=== PATIENT | male | born 1995 | race Caucasian/White ===

== ENCOUNTER 2016-11-24 01:14 | Emergency (ER) | payer OTHER ==
[~2016-11-24] VITALS: Ht 182.9 cm; Wt 79.2 kg
[2016-11-24 01:16] VITALS: TEMP 36.7; Ht 182.9 cm; Wt 79.2 kg
[2016-11-24] MEDS ORDERED: PROPARACAINE HCL 0.5% OP SOLN 15 ML BTL ONE (01:32)
[2016-11-24] MEDS ORDERED: CIPROFLOXACIN HCL 0.3% OP SOLN 2.5 ML BTL OP ONE (02:30)
[2016-11-24] MEDS ORDERED: OXYCODONE IR HOME PACK PO ONE (02:30)
[2016-11-24 02:53] VITALS: BP 129/65; PULSE 58; O2SAT 98
--- NOTE | 2016-11-24 06:38 | EMERGENCY ROOM VISIT NOTE ---
ED Visit Note First contact with patient: 01:37 CHIEF COMPLAINT: Foreign body of the eye HISTORY OF PRESENT ILLNESS: This 21 year old male patient presents to the emergency department complaining of pain and foreign body sensation in the right eye. The patient states that he was working on a vehicle today, and got a piece of metal in his eye. There has been a constant moderate pain and irritation, redness and tearing in the eye. The vision has been decreased in the right eye. The patient does not wear contacts. The patient rates the pain as 7/10. The patient has not had previous injuries to this eye. Tetanus shot is reportedly up to date. REVIEW OF SYSTEMS: A 6 system review of systems was completed with positives and pertinent negatives listed in the HPI. ALLERGIES:NKDA MEDICATIONS: No chronic medications PMH: Otherwise healthy SOCIAL HISTORY: Lives locally PHYSICAL EXAM: Vital Signs: Reviewed Nurse's notes, vital signs stable. Visual acuity 20/50 in the right and 20/30 in the left. GENERAL: This is a white male , in no acute distress, but who is uncomfortable from the eye problem. Well- developed well-nourished. EYES: The pupils are equal round and reactive to light and accommodation. EOMs are full and without tenderness. There is watery discharge from the right eye which is injected. There is a metallic- appearing foreign body at 2:00 visible on the cornea. There is no foreign body visible under the eyelid after lid eversion. The cornea was clear and no hyphema was seen. Fluorescein uptake was observed with ultraviolet light significant for a corneal abrasion only around the previous location of the foreign body. EMERGENCY DEPARTMENT COURSE: I examined the patient. Alcaine 2 drops were placed in the patient's right eye. A slit lamp exam was performed as above. Verbal consent was obtained to perform the procedure. The metallic foreign body was removed using a tuberculin needle and cotton swab. Ciloxan two drops was placed in the patient's right eye. The patient was discharged home in good condition to follow up as below. Current/Historical Medications No Active Prescriptions or Reported Meds Allergies Coded Allergies: No Known Allergies (Unverified , 11/24/16) Vital Signs Date Time Temp Pulse Resp B/P Pulse Ox O2 Delivery O2 Flow Rate FiO2 11/24/16 02:53 58 16 129/65 98 11/24/16 01:16 36.7 67 20 133/83 100 Room Air Medications Administered Medications (Trade) Dose Ordered Sig/Sanjeev Route Start Time Stop Time Status Last Admin Dose Admin Ciprofloxacin HCl (Ciprofloxacin 0.3% Op Soln) 2 drops NOW ONCE OP 11/24/16 02:30 11/24/16 02:31 DC 11/24/16 02:48 2 DROPS Oxycodone HCl (Roxicodone Immediate Rel 5MG Home Pack) 1 homepack UD ONCE PO 11/24/16 02:30 11/24/16 02:31 DC 11/24/16 02:48 1 HOMEPACK Departure Information Impression Primary Impression: Foreign body in eye Dispostion Home / Self-Care Condition GOOD Prescriptions No Active Prescriptions or Reported Meds Referrals Broderick Anthony M.D. Forms HOME CARE DOCUMENTATION FORM, IMPORTANT VISIT INFORMATION Patient Instructions My [facility] Additional Instructions You were seen and evaluated today on an emergency basis only. This is not a substitute for, or an effort to provide, complete comprehensive medical care. It is not possible to recognize and treat all injuries or illnesses in a single emergency department visit. For this reason it is recommended that you followup with Ophthalmology, Dr. Bowen's office in the next 1-2 days for ongoing care and evaluation. Call in the morning to make an appointment. For baseline pain relief you may alternate ibuprofen and acetaminophen every 4 hours for pain control. Take 600 mg ibuprofen (Advil) and then 4 hours later take 1000 mg acetaminophen (Tylenol). Do not take more than 3000 mg acetaminophen in a single day. Use Ciloxan Eye Drops: Instill 1-2 drops into the conjunctival sac every 2 hours while awake for 2 days and 1-2 drops every 4 hours while awake for the next 5 days Oxycodone (OxyIR) 5mg (homepack): Take ONE pill every SIX hours for breakthrough pain. Avoid alcohol, operating machinery or dangerous equipment, working on ladders or roofs, DRIVING, or situations where being under the influence may be dangerous. It is recommended to use an [id number] stool softener such as Colace, 100mg twice daily while taking this medication to avoid constipation. You are welcome to return to the emergency department anytime with new, worsening, or concerning symptoms.
== END 2016-11-24 02:55 | disposition home or self-care (01) ==
LOC: C.EDB 01:15
DX: S05.8X1A Other injuries of right eye and orbit, initial encounter (principal); X17.XXXA Contact with hot engines, machinery and tools, initial encounter

== ENCOUNTER 2017-04-02 16:32 | Emergency (ER) | payer OTHER ==
[~2017-04-02] VITALS: Ht 182.9 cm; Wt 77.2 kg
[2017-04-02 16:42] VITALS: TEMP 36.8; Ht 182.9 cm; Wt 77.2 kg
[2017-04-02] MEDS ORDERED: XYLOCAINE 1%/SOD BICARB 20 ML VIAL INFIL ONE (17:30)
--- NOTE | 2017-04-02 17:53 | DIAGNOSTIC IMAGING REPORT ---
RIGHT HAND 3 VIEWS HISTORY: hand injury Right COMPARISON: None. FINDINGS: There is no fracture or dislocation. Soft tissues are unremarkable. No radiopaque foreign bodies. IMPRESSION: No fractures. Electronically signed by: Sukhjinder Murray M.D. 04/02/2017 5:51 PM Dictated Date/Time: 04/02/2017 5:49 PM
--- NOTE | 2017-04-02 18:14 | EMERGENCY ROOM VISIT NOTE ---
ED Visit Note First contact with patient: 17:27 CHIEF COMPLAINT: Right hand injury and laceration HISTORY OF PRESENT ILLNESS: This 22-year-old male presents the ER with chief complaint of right hand pain and a laceration between his fourth and fifth knuckles. The patient states that approximately 90 minutes ago he punched a mirror with his right hand. The patient states it is very painful and it hurts to move his fingers. The patient denies any numbness and tingling in his fingers. The patient's tetanus is up-to-date. The patient denies any prior fractures to his right hand. REVIEW OF SYSTEMS: 6 system review was performed and was negative unless stated otherwise in history of present illness. PMH: The patient is healthy; cervical spine fracture SOCIAL HISTORY: Patient lives with his mother. The patient admits to smokeless tobacco but denies any alcohol use. PHYSICAL EXAM: Vital Signs: Were reviewed Reviewed Nurse's notes. GENERAL: 22- year-old white male appears in no acute distress. MENTAL Status: Alert and oriented 3. RIGHT HAND: There is a 3 cm long laceration on the dorsal aspect between the fourth and fifth MCP joints. The edges are gaping widely apart. There is no foreign material in the wound and it looks clean. There is no active bleeding. No deep structures such as tendons or nerves are seen in the base of the wound. The patient is unable to flex his fingers secondary to pain. The patient also has swelling over the fourth and fifth metacarpals and is tender to palpation over this area. EMERGENCY DEPARTMENT COURSE: The patient was evaluated. The patient was offered pain medication but declined. X-ray of the right hand was ordered and interpreted by the radiologist and myself. DIAGNOSTICS:RIGHT HAND 3 VIEWS HISTORY: hand injury Right COMPARISON: None. FINDINGS: There is no fracture or dislocation. Soft tissues are unremarkable. No radiopaque foreign bodies. IMPRESSION: No fractures. Electronically signed by: Sukhjinder Murray M.D. 04/02/2017 5:51 PM The patient was informed of the findings. PROCEDURE:Wound Repair: Complexity: Basic. Verbal consent was obtained after the risks and benefits were explained, including but not limited to bleeding, scarring, infection, pain, and bone/joint /nerve damage. The skin was prepped with betadine and a sterile field set. The wound was anesthetized with 2.5 ml of 1% buffered lidocaine. With direct pressure the bleeding subsided. Copious irrigation was performed using sterile saline. The wound was explored for foreign bodies and none found. Debridement was not performed. The wound edges were approximated using 5-0 Prolene with 7 simple interrupted sutures. Hemostasis and excellent approximation was achieved. Antibacterial ointment and a sterile dressing applied. Detailed wound care instructions and signs and symptoms of infection reviewed with the patient. No complications and the patient tolerated the procedure well. DIAGNOSIS: 3 cm right hand laceration Right hand contusion DISCHARGE INSTRUCTIONS & TREATMENT: Keep wound clean and dry. No water on the area for 12-24 hrs then no soaking until sutures removed. Do not allow any crusting or dried blood to accumulate on sutures. If this occurs, use a 1:1 solution of hydrogen peroxide/water on a Q-tip to clean the wound. Use an antibiotic ointment for 3-4 days, then let wound dry. Suture removal in 10-12 days. Follow up sooner for any signs of infection (increasing redness, swelling , drainage). Ice and elevate for swelling and pain. Tylenol 650 mg every 6 hrs for pain. Current/Historical Medications No Active Prescriptions or Reported Meds Allergies Coded Allergies: No Known Allergies (Unverified , 11/24/16) Vital Signs Date Time Temp Pulse Resp B/P (MAP) Pulse Ox O2 Delivery O2 Flow Rate FiO2 04/02/17 16:42 36.8 91 18 137/76 96 Room Air Departure Information Prescriptions No Active Prescriptions or Reported Meds Referrals No Doctor, Assigned (PCP) Patient Instructions [facility]
[2017-04-02 18:35] VITALS: BP 128/79; PULSE 87; O2SAT 97
== END 2017-04-02 18:58 | disposition home or self-care (01) ==
LOC: C.EDB 16:33 → C.EDD 18:58
DX: S61.421A Laceration with foreign body of right hand, initial encounter (principal); S60.221A Contusion of right hand, initial encounter; W25.XXXA Contact with sharp glass, initial encounter